=== PATIENT | male | born 1950 | race Caucasian/White ===

== ENCOUNTER → 2017-11-12 | Outpatient (CLI) | payer MEDICARE ==
[~2017-11-12] MED LIST: ATOR20TA9 PO; CARV3.122 PO; FURO-92 PO; FURO40TA6 PO; IRBE75TA10 PO; OMNIPAQUE 350 MG/ML, 150 ML BOTTLE ONE; SPIR25TA5 PO
== END | disposition home or self-care (01) ==
LOC: CFH 12:00
PROVIDERS: ATTEND Nurse Practitioner
DX: K80.20 Calculus of gallbladder without cholecystitis without obstruction (principal); I12.9 Hypertensive chronic kidney disease with stage 1 through stage 4 chronic kidney disease, or unspecified chronic kidney disease; N18.4 Chronic kidney disease, stage 4 (severe); I50.9 Heart failure, unspecified; I25.2 Old myocardial infarction; E78.5 Hyperlipidemia, unspecified
CPT/HCPCS: 74177; Q9967

== ENCOUNTER → 2017-12-25 | Day surgery (SDC) | payer MEDICARE ==
[~2017-12-25] VITALS: Ht 188 cm; Wt 142.6 kg
[~2017-12-25] MED LIST changes: -OMNIPAQUE 350 MG/ML, 150 ML BOTTLE ONE; +SODIUM CHLORIDE 0.9% 1,000 ML IV SCH
== END | disposition home or self-care (01) ==
LOC: OUT 06:05
PROVIDERS: ATTEND Internal Medicine Critical Care Medicine
DX: Z02.9 Encounter for administrative examinations, unspecified (principal)

== ENCOUNTER → 2018-04-29 | Outpatient (CLI) | payer MEDICARE ==
[~2018-04-29] MED LIST changes: +ATOR20TA37 PO; -ATOR20TA9 PO; -SODIUM CHLORIDE 0.9% 1,000 ML IV SCH
== END | disposition home or self-care (01) ==
LOC: CFH 14:58
PROVIDERS: ATTEND Urology
DX: D49.511 Neoplasm of unspecified behavior of right kidney (principal); N26.1 Atrophy of kidney (terminal)
CPT/HCPCS: 76770

== ENCOUNTER → 2018-07-30 | Outpatient (CLI) | payer MEDICARE | END | disposition home or self-care (01) | LOC: RAD 10:15 | PROVIDERS: ATTEND Nurse Practitioner Family | DX: I25.10 Atherosclerotic heart disease of native coronary artery without angina pectoris (principal); I51.7 Cardiomegaly; R59.9 Enlarged lymph nodes, unspecified | CPT/HCPCS: 71250 ==

== ENCOUNTER 2018-08-19 05:58 | Day surgery (SDC) | payer MEDICARE ==
[~2018-08-19] VITALS: Ht 188 cm; Wt 141.0 kg
[2018-08-19 07:12] VITALS: BP 145/87
[2018-08-19] MEDS ORDERED: SODIUM CHLORIDE 0.9% 1,000 ML IV SCH (07:14)
[2018-08-19] MEDS ORDERED: FURO-92 PO (07:17)
[2018-08-19] MEDS ORDERED: IRBE75TA10 PO (07:17)
[2018-08-19] MEDS ORDERED: ROSU40TA PO (07:17)
[2018-08-19] MEDS ORDERED: CARV3.1212 PO (07:17)
[2018-08-19 07:32] LABS: INTERNATIONAL NORMALIZED RATIO 1.08 (0.93-1.1); PROTHROMBIN TIME 11.3 Seconds (9.6-11.5)
[2018-08-19] MEDS ORDERED: FENTANYL PF 100 MCG/2ML ONE (07:46)
[2018-08-19] MEDS ORDERED: FLUMAZENIL 0.1 MG/1 ML, 5ML ONE (07:46)
[2018-08-19] MEDS ORDERED: MIDAZOLAM 1 MG/ML, 5ML ONE (07:46)
[2018-08-19] MEDS ORDERED: NALOXONE 1 MG/ML, 2ML ONE (07:46)
[2018-08-19] MEDS ORDERED: LIDOCAINE-MPF 1%, 5ML ONE (07:48)
== END 2018-08-19 11:00 | disposition home or self-care (01) ==
LOC: OUT 05:58
PROVIDERS: ATTEND Nurse Practitioner Family
DX: D41.02 Neoplasm of uncertain behavior of left kidney (principal); R91.8 Other nonspecific abnormal finding of lung field; J44.9 Chronic obstructive pulmonary disease, unspecified; I25.10 Atherosclerotic heart disease of native coronary artery without angina pectoris; I25.2 Old myocardial infarction; E78.00 Pure hypercholesterolemia, unspecified; I13.0 Hypertensive heart and chronic kidney disease with heart failure and stage 1 through stage 4 chronic kidney disease, or unspecified chronic kidney disease; I50.22 Chronic systolic (congestive) heart failure; N18.3 Chronic kidney disease, stage 3 (moderate); G47.33 Obstructive sleep apnea (adult) (pediatric); I25.5 Ischemic cardiomyopathy; E66.01 Morbid (severe) obesity due to excess calories; Z68.41 Body mass index [BMI] 40.0-44.9, adult; Z79.899 Other long term (current) drug therapy; Z87.891 Personal history of nicotine dependence; Z95.810 Presence of automatic (implantable) cardiac defibrillator; Z95.1 Presence of aortocoronary bypass graft; Z98.890 Other specified postprocedural states; Z82.49 Family history of ischemic heart disease and other diseases of the circulatory system
CPT/HCPCS: 32405; 36415; 50200; 71045; 77012; 85610; 88305; 99156; 99157; J2250; J3010; J7030; J2310

== ENCOUNTER 2018-09-09 06:00 | Day surgery (SDC) | payer MEDICARE ==
[~2018-09-09] VITALS: Ht 185.4 cm; Wt 142.9 kg
[~2018-09-09 06:00] MED LIST changes: +CARV3.1212 PO; +ROSU40TA PO
[2018-09-09 06:52] VITALS: BP 124/76
[2018-09-09] MEDS ORDERED: NALOXONE 1 MG/ML, 2ML ONE (07:58)
[2018-09-09] MEDS ORDERED: FENTANYL PF 100 MCG/2ML ONE (07:58)
[2018-09-09] MEDS ORDERED: MIDAZOLAM 1 MG/ML, 5ML ONE (07:58)
[2018-09-09] MEDS ORDERED: FLUMAZENIL 0.1 MG/1 ML, 5ML ONE (07:58)
== END 2018-09-09 12:20 | disposition home or self-care (01) ==
LOC: RAD 06:00 → OUT 12:20
PROVIDERS: ATTEND Nurse Practitioner Family
DX: J93.9 Pneumothorax, unspecified (principal); I11.0 Hypertensive heart disease with heart failure; I50.9 Heart failure, unspecified
CPT/HCPCS: 32405; 71045; 77012; 88305; 88333; 99156; J2250; J3010; 99157; J2310

== ENCOUNTER → 2018-09-10 | Outpatient (CLI) | payer MEDICARE | END | disposition home or self-care (01) | LOC: RAD 11:05 | PROVIDERS: ATTEND Radiology Diagnostic Radiology | DX: J93.9 Pneumothorax, unspecified (principal); R91.8 Other nonspecific abnormal finding of lung field | CPT/HCPCS: 71046 ==

== ENCOUNTER → 2018-09-12 | Outpatient (CLI) | payer MEDICARE | END | disposition home or self-care (01) | LOC: RAD 09:03 | PROVIDERS: ATTEND Radiology Diagnostic Radiology | DX: J93.9 Pneumothorax, unspecified (principal); R06.02 Shortness of breath; I42.9 Cardiomyopathy, unspecified; J98.11 Atelectasis | CPT/HCPCS: 71046 ==

== ENCOUNTER → 2018-10-07 | Outpatient (CLI) | payer MEDICARE | END | disposition home or self-care (01) | LOC: PETCFH 13:16 | PROVIDERS: ATTEND Registered Nurse | DX: D41.02 Neoplasm of uncertain behavior of left kidney (principal); N28.1 Cyst of kidney, acquired; K57.30 Diverticulosis of large intestine without perforation or abscess without bleeding; K80.80 Other cholelithiasis without obstruction; M47.816 Spondylosis without myelopathy or radiculopathy, lumbar region; R91.8 Other nonspecific abnormal finding of lung field; N18.4 Chronic kidney disease, stage 4 (severe); Z95.1 Presence of aortocoronary bypass graft | CPT/HCPCS: 78815; A9552 ==

== ENCOUNTER → 2020-11-22 | Outpatient (CLI) | payer MEDICARE ==
[~2020-11-22] MED LIST changes: -IRBE75TA10 PO; +IRBE75TA6 PO
[2020-11-22 15:47] LABS: BASOPHILS % (AUTO) 0 % (0-1); EOSINOPHILS % (AUTO) 1 % (1-7); LYMPHOCYTES % (AUTO) 20 % (22-44); MEAN CORPUSCULAR HEMOGLOBIN 31.8 pg (27.5-34.5); MEAN CORPUSCULAR HGB CONC 33.4 g/dL (33.2-36.2); MEAN PLATELET VOLUME 8.7 fL (7.4-10.4); MONOCYTES % (AUTO) 9 % (2-9); NEUTROPHILS % (AUTO) 69 % (42-75); PLATELET COUNT 139 x10^3/uL (130-400); RED BLOOD COUNT 3.87 x10^6/uL (4.38-5.82); RED CELL DISTRIBUTION WIDTH 13.6 % (9.4-14.8)
[2020-11-22 15:54] LABS: ALBUMIN 3.6 g/dL (3.4-5.0); ANION GAP 8 mmol/L (5-15); CALCIUM 8.7 mg/dL (8.5-10.1); CHLORIDE 109 mmol/L (98-107); CHOLESTEROL, TOTAL 84 mg/dL (140-239); CREATININE 2.61 mg/dL (0.7-1.3); TRIGLYCERIDES 95 mg/dL (50-200); VLDL CHOLESTEROL 19 mg/dL (0-25)
[2020-11-22 15:56] LABS: HDL CHOLESTEROL (DIRECT) 33 mg/dL (40-60)
[2020-11-22 16:39] LABS: MICROSCOPIC NOT IND
[2020-11-22 16:50] LABS: CALCIUM 8.7 mg/dL (8.5-10.1)
[2020-11-22 16:54] LABS: CHOL/HDL RATIO 2.5; HDL CHOL % 39 % (26-37); LDL CHOLESTEROL,CALCULATED 32 mg/dL (54-169)
[2020-11-22 17:04] LABS: CREATININE,URINE RANDOM 56.8 mg/dL
== END | disposition home or self-care (01) ==
LOC: LAB 15:18
PROVIDERS: ATTEND Internal Medicine Nephrology
DX: I13.0 Hypertensive heart and chronic kidney disease with heart failure and stage 1 through stage 4 chronic kidney disease, or unspecified chronic kidney disease (principal); I50.9 Heart failure, unspecified; N18.4 Chronic kidney disease, stage 4 (severe); E78.5 Hyperlipidemia, unspecified; I25.2 Old myocardial infarction; N28.1 Cyst of kidney, acquired; N25.81 Secondary hyperparathyroidism of renal origin; E55.9 Vitamin D deficiency, unspecified; R79.9 Abnormal finding of blood chemistry, unspecified; Z79.899 Other long term (current) drug therapy
CPT/HCPCS: 36415; 80061; 80069; 81003; 82306; 82310; 82570; 83735; 83970; 84156; 84550; 85025